=== PATIENT | female | born 1950 ===

== ENCOUNTER 2021-08-21 17:12 | Inpatient (IN) | payer MEDICARE, MEDICAID ==
[2021-08-21] MEDS ORDERED: Albuterol 0.083% 2.5 MG/3 ML Neb Soln NEB ONE (17:20)
[2021-08-21 18:13] LABS: ANION GAP 12.2 mEq/L (7-13); CHLORIDE,CL 96 mmol/L (98-107); SODIUM,NA 137 mmol/L (136-145)
[2021-08-21] MEDS ORDERED: Nystatin Crm 15 GM Tube TOP ONE (18:28)
[2021-08-21] MEDS ORDERED: Nystatin Topical Powder 30 GM Bottle TOP ONE (18:34)
[2021-08-21 18:53] LABS: AMPHETAMINES,URINE NEGATIVE (NEGATIVE); BARBITURATES,URINE NEGATIVE (NEGATIVE); BENZODIAZEPINE,URINE NEGATIVE (NEGATIVE); MDMA (ECSTASY), URINE NEGATIVE (NEGATIVE); METHADONE,URINE NEGATIVE (NEGATIVE); METHAMPHETAMINES,URINE NEGATIVE (NEGATIVE); OPIATES,URINE NEGATIVE (NEGATIVE); OXYCODONE,URINE NEGATIVE (NEGATIVE); PHENCYCLIDINE,URINE NEGATIVE (NEGATIVE); TCA,URINE NEGATIVE (NEGATIVE)
[2021-08-21 18:56] LABS: CORONAVIRUS COVID-19 NAA NEGATIVE (NEGATIVE)
[2021-08-21] MEDS: Fluconazole 100 MG Tab PO ONE (19:05)
[2021-08-21] MEDS ORDERED: Fluconazole 100 MG Tab ONE (19:05)
[2021-08-21] MEDS ORDERED: Levofloxacin/Dextrose 5%-Water 750 MG in Premix Bag 1 BAG IV ONE (20:14)
[2021-08-21] MEDS ORDERED: 50% Dextrose in Water 50 ML Syringe IVPUSH PRN (21:47)
[2021-08-21] MEDS ORDERED: Ondansetron 4 MG/2 ML SDV IVPUSH PRN (21:55)
[2021-08-21] MEDS: Sodium Chloride 0.9% 1,000 ML IV SCH (23:26)
[2021-08-21] MEDS: Heparin Sodium 5,000 Units/ML Vial SUBCUT SCH (23:30)
[2021-08-22] MEDS: Heparin Sodium 5,000 Units/ML Vial SUBCUT SCH ×3 (06:36→21:16)
[2021-08-22 07:16] LABS: ANION GAP 9.2 mEq/L (7-13); CHLORIDE,CL 100 mmol/L (98-107); SODIUM,NA 136 mmol/L (136-145)
[2021-08-22] MEDS: glipiZIDE 5 MG Tab PO SCH ×2 (08:53→17:16)
[2021-08-22] MEDS: Cyanocobalamin (Vitamin B12) 100 MCG Tab PO SCH (08:54)
[2021-08-22] MEDS: Atenolol 50 MG Tab PO SCH (08:54)
[2021-08-22] MEDS: Gabapentin 300 MG Cap PO SCH ×3 (08:55→20:48)
[2021-08-22] MEDS: Levothyroxine 50 MCG Tab PO SCH (08:55)
[2021-08-22] MEDS: Ezetimibe 10 MG Tab PO SCH (08:55)
[2021-08-22] MEDS: Aspirin 81 MG Tab.EC PO SCH (08:55)
[2021-08-22] MEDS: Insulin Lispro 100 Units/ML 3 ML Vial SUBCUT SCH ×4 (08:56→20:50)
[2021-08-22] MEDS: Dorzolamide/Timolol 2%-0.5% Ophth Soln 10 ML Bottle EYEBOTH SCH ×2 (08:56→20:52)
[2021-08-22] MEDS: Multivitamin Tab PO SCH (08:57)
[2021-08-22] MEDS: Sodium Chloride 0.9% 1,000 ML IV SCH (12:30)
[2021-08-22] MEDS ORDERED: Furosemide 20 MG Tab PO ONE (14:32)
[2021-08-22] MEDS: Albuterol/Ipratropium 3.0-0.5 MG/3 ML Neb Soln NEB SCH ×2 (15:10→18:07)
[2021-08-22] MEDS: Nystatin Topical Powder 30 GM Bottle TOP SCH ×2 (15:32→22:19)
[2021-08-22] MEDS: Fluconazole 100 MG Tab PO ONE (17:30)
[2021-08-22] MEDS: Temazepam 15 MG Cap PO PRN (20:48)
[2021-08-22] MEDS: Levofloxacin/Dextrose 5%-Water 750 MG in Premix Bag 1 BAG IV SCH (21:16)
[2021-08-23] MEDS: Albuterol/Ipratropium 3.0-0.5 MG/3 ML Neb Soln NEB PRN ×2 (02:25→22:52)
[2021-08-23] MEDS: Sodium Chloride 0.9% 1,000 ML IV SCH (02:25)
[2021-08-23] MEDS: glipiZIDE 5 MG Tab PO SCH ×2 (05:13→17:16)
[2021-08-23] MEDS: Heparin Sodium 5,000 Units/ML Vial SUBCUT SCH ×3 (05:14→22:33)
[2021-08-23] MEDS: Nystatin Topical Powder 30 GM Bottle TOP SCH ×4 (06:25→22:42)
[2021-08-23 07:11] LABS: CHLORIDE,CL 97 mmol/L (98-107); SODIUM,NA 133 mmol/L (136-145)
[2021-08-23] MEDS: Albuterol/Ipratropium 3.0-0.5 MG/3 ML Neb Soln NEB SCH ×3 (07:30→18:00)
[2021-08-23] MEDS ORDERED: Furosemide 40 MG/4 ML VIAL IVPUSH ONE (07:42)
[2021-08-23 07:56] LABS: ALLEN TEST POSITIVE; BASE EXCESS ARTERIAL -4 mmol/L ((-2)-(+3)); BICARBONATE,ARTERIAL 28.8 mmol/L (22-26); O2 DELIVERY DEVICE NON REBR MASK; O2 SATURATION ARTERIAL 95 % (95-100); PCO2 ARTERIAL 99 mmHg (35-45); PO2 ARTERIAL 87 mmHg (70-100)
[2021-08-23] MEDS: Insulin Lispro 100 Units/ML 3 ML Vial SUBCUT SCH ×4 (09:11→22:40)
[2021-08-23] MEDS: Atenolol 50 MG Tab PO SCH (09:12)
[2021-08-23] MEDS: Multivitamin Tab PO SCH (09:12)
[2021-08-23] MEDS: Levothyroxine 50 MCG Tab PO SCH (09:12)
[2021-08-23] MEDS: Gabapentin 300 MG Cap PO SCH ×3 (09:13→20:14)
[2021-08-23] MEDS: Aspirin 81 MG Tab.EC PO SCH (09:13)
[2021-08-23] MEDS: Dorzolamide/Timolol 2%-0.5% Ophth Soln 10 ML Bottle EYEBOTH SCH ×2 (09:13→20:13)
[2021-08-23] MEDS: Ezetimibe 10 MG Tab PO SCH (09:13)
[2021-08-23] MEDS: Cyanocobalamin (Vitamin B12) 100 MCG Tab PO SCH (09:13)
[2021-08-23 09:38] LABS: ALLEN TEST POSITIVE; BASE EXCESS ARTERIAL 0 mmol/L ((-2)-(+3)); O2 DELIVERY DEVICE BIPAP; O2 SATURATION ARTERIAL 99 % (95-100); PCO2 ARTERIAL 64 mmHg (35-45); PO2 ARTERIAL 103 mmHg (70-100)
[2021-08-23] MEDS ORDERED: Furosemide 20 MG/2 ML VIAL IVPUSH ONE (16:00)
[2021-08-23] MEDS: Acetaminophen 325 MG Tab PO PRN (17:20)
[2021-08-23] MEDS: Levofloxacin/Dextrose 5%-Water 750 MG in Premix Bag 1 BAG IV SCH (22:35)
[2021-08-24] MEDS: Heparin Sodium 5,000 Units/ML Vial SUBCUT SCH ×3 (05:40→22:05)
[2021-08-24] MEDS: Nystatin Topical Powder 30 GM Bottle TOP SCH ×4 (05:42→22:03)
[2021-08-24] MEDS: Albuterol/Ipratropium 3.0-0.5 MG/3 ML Neb Soln NEB SCH ×3 (06:51→18:04)
[2021-08-24 06:54] LABS: ANION GAP 7.3 mEq/L (7-13); CHLORIDE,CL 97 mmol/L (98-107); SODIUM,NA 136 mmol/L (136-145)
[2021-08-24] MEDS: glipiZIDE 5 MG Tab PO SCH ×2 (08:02→17:41)
[2021-08-24] MEDS: Multivitamin Tab PO SCH (09:08)
[2021-08-24] MEDS: Levothyroxine 50 MCG Tab PO SCH (09:08)
[2021-08-24] MEDS: Ezetimibe 10 MG Tab PO SCH (09:09)
[2021-08-24] MEDS: Aspirin 81 MG Tab.EC PO SCH (09:09)
[2021-08-24] MEDS: Cyanocobalamin (Vitamin B12) 100 MCG Tab PO SCH (09:09)
[2021-08-24] MEDS: Furosemide 20 MG Tab PO SCH (09:09)
[2021-08-24] MEDS: Atenolol 50 MG Tab PO SCH (09:10)
[2021-08-24] MEDS: Gabapentin 300 MG Cap PO SCH ×3 (09:10→21:56)
[2021-08-24] MEDS: Sodium Chloride 0.9% 10 ML Syringe FLUSH PRN ×3 (09:11→22:07)
[2021-08-24] MEDS: Dorzolamide/Timolol 2%-0.5% Ophth Soln 10 ML Bottle EYEBOTH SCH ×2 (09:13→21:57)
[2021-08-24] MEDS: Insulin Lispro 100 Units/ML 3 ML Vial SUBCUT SCH ×4 (09:14→22:04)
[2021-08-24] MEDS: Albuterol/Ipratropium 3.0-0.5 MG/3 ML Neb Soln NEB PRN (10:11)
[2021-08-24] MEDS ORDERED: Furosemide 20 MG/2 ML VIAL IVPUSH ONE (10:30)
[2021-08-24] MEDS ORDERED: Loratadine 10 MG Tab PO PRN (20:34)
[2021-08-24] MEDS ORDERED: Albuterol 6.7 GM Inhaler INH PRN (20:34)
[2021-08-24] MEDS ORDERED: Dorzolamide/Timolol 2%-0.5% Ophth Soln 10 ML Bottle EYEBOTH SCH (21:00)
[2021-08-24] MEDS: Rosuvastatin 10 MG Tab PO SCH (21:56)
[2021-08-24] MEDS: Levofloxacin/Dextrose 5%-Water 750 MG in Premix Bag 1 BAG IV SCH (22:08)
[2021-08-25] MEDS: Nystatin Topical Powder 30 GM Bottle TOP SCH ×3 (05:56→23:08)
[2021-08-25] MEDS: Heparin Sodium 5,000 Units/ML Vial SUBCUT SCH ×3 (05:56→23:07)
[2021-08-25 06:49] LABS: ANION GAP 5.7 mEq/L (7-13); CHLORIDE,CL 96 mmol/L (98-107); SODIUM,NA 137 mmol/L (136-145)
[2021-08-25] MEDS: Gabapentin 300 MG Cap PO SCH ×3 (08:31→23:04)
[2021-08-25] MEDS: Vitamin B6-pyridOXINE 100 MG Tab PO SCH (08:31)
[2021-08-25] MEDS: Aspirin 81 MG Tab.EC PO SCH (08:31)
[2021-08-25] MEDS: Levothyroxine 50 MCG Tab PO SCH (08:32)
[2021-08-25] MEDS: metFORMIN 500 MG Tab PO SCH ×2 (08:32→17:58)
[2021-08-25] MEDS: Lisinopril 10 MG Tab PO SCH (08:33)
[2021-08-25] MEDS: glipiZIDE 5 MG Tab PO SCH ×2 (08:33→17:57)
[2021-08-25] MEDS: Multivitamin Tab PO SCH (08:34)
[2021-08-25] MEDS: Cyanocobalamin (Vitamin B12) 100 MCG Tab PO SCH (08:34)
[2021-08-25] MEDS: Furosemide 20 MG Tab PO SCH (08:34)
[2021-08-25] MEDS: Ezetimibe 10 MG Tab PO SCH (08:35)
[2021-08-25] MEDS: Atenolol 50 MG Tab PO SCH (08:35)
[2021-08-25] MEDS: Albuterol/Ipratropium 3.0-0.5 MG/3 ML Neb Soln NEB SCH ×3 (08:43→19:21)
[2021-08-25] MEDS ORDERED: Non-Formulary Medication 1 Each (Potassium Gluconate [Potassium] 99 MG Tablet) PO SCH (09:00)
[2021-08-25] MEDS ORDERED: UBIDECARENONE 100 MG PO SCH (09:00)
[2021-08-25] MEDS ORDERED: Atenolol 50 MG Tab PO SCH (09:00)
[2021-08-25] MEDS ORDERED: ZINC SULFATE 220 MG PO SCH (09:00)
[2021-08-25] MEDS ORDERED: Magnesium Sulfate/D5W 1 GM/100 ML BAG IV ONE (09:10)
[2021-08-25] MEDS: Insulin Lispro 100 Units/ML 3 ML Vial SUBCUT SCH ×4 (10:12→23:15)
[2021-08-25] MEDS: Sodium Chloride 0.9% 10 ML Syringe FLUSH PRN ×2 (10:22→23:17)
[2021-08-25] MEDS: Dorzolamide/Timolol 2%-0.5% Ophth Soln 10 ML Bottle EYEBOTH SCH ×2 (10:26→23:02)
[2021-08-25] MEDS: Albuterol/Ipratropium 3.0-0.5 MG/3 ML Neb Soln NEB PRN (10:49)
[2021-08-25] MEDS: Rosuvastatin 10 MG Tab PO SCH (23:04)
[2021-08-25] MEDS: Levofloxacin/Dextrose 5%-Water 750 MG in Premix Bag 1 BAG IV SCH (23:17)
[2021-08-26] MEDS: Heparin Sodium 5,000 Units/ML Vial SUBCUT SCH ×3 (06:11→21:32)
[2021-08-26] MEDS: Nystatin Topical Powder 30 GM Bottle TOP SCH ×4 (06:11→21:54)
[2021-08-26 06:38] LABS: ANION GAP 8.1 mEq/L (7-13); CHLORIDE,CL 98 mmol/L (98-107); SODIUM,NA 138 mmol/L (136-145)
[2021-08-26] MEDS: Albuterol/Ipratropium 3.0-0.5 MG/3 ML Neb Soln NEB SCH ×3 (07:25→17:45)
[2021-08-26] MEDS: glipiZIDE 5 MG Tab PO SCH ×2 (07:41→17:39)
[2021-08-26] MEDS: Sodium Chloride 0.9% 10 ML Syringe FLUSH PRN ×2 (08:43→21:44)
[2021-08-26] MEDS: Aspirin 81 MG Tab.EC PO SCH (08:44)
[2021-08-26] MEDS: Multivitamin Tab PO SCH (08:44)
[2021-08-26] MEDS: Vitamin B6-pyridOXINE 100 MG Tab PO SCH (08:44)
[2021-08-26] MEDS: Ezetimibe 10 MG Tab PO SCH (08:44)
[2021-08-26] MEDS: Levothyroxine 50 MCG Tab PO SCH (08:44)
[2021-08-26] MEDS: Lisinopril 10 MG Tab PO SCH (08:45)
[2021-08-26] MEDS: Cyanocobalamin (Vitamin B12) 100 MCG Tab PO SCH (08:45)
[2021-08-26] MEDS: Gabapentin 300 MG Cap PO SCH ×3 (08:45→21:27)
[2021-08-26] MEDS: metFORMIN 500 MG Tab PO SCH ×2 (08:46→17:38)
[2021-08-26] MEDS: Atenolol 50 MG Tab PO SCH (08:46)
[2021-08-26] MEDS: Furosemide 40 MG Tab PO SCH (08:47)
[2021-08-26] MEDS: Insulin Lispro 100 Units/ML 3 ML Vial SUBCUT SCH ×4 (08:47→21:29)
[2021-08-26] MEDS: Dorzolamide/Timolol 2%-0.5% Ophth Soln 10 ML Bottle EYEBOTH SCH ×2 (08:49→21:29)
[2021-08-26] MEDS ORDERED: Magnesium Sulfate/Water 2 GM in Premix Bag 1 BAG IV ONE (09:00)
[2021-08-26] MEDS: Albuterol/Ipratropium 3.0-0.5 MG/3 ML Neb Soln NEB PRN (15:35)
[2021-08-26] MEDS: Rosuvastatin 10 MG Tab PO SCH (21:27)
[2021-08-26] MEDS: Levofloxacin/Dextrose 5%-Water 750 MG in Premix Bag 1 BAG IV SCH (21:46)
[2021-08-27] MEDS: Temazepam 15 MG Cap PO PRN (01:15)
[2021-08-27] MEDS: Heparin Sodium 5,000 Units/ML Vial SUBCUT SCH ×3 (06:00→21:01)
[2021-08-27] MEDS: Nystatin Topical Powder 30 GM Bottle TOP SCH ×3 (06:04→23:34)
[2021-08-27] MEDS: Albuterol/Ipratropium 3.0-0.5 MG/3 ML Neb Soln NEB SCH ×3 (07:10→19:56)
[2021-08-27 07:38] LABS: ANION GAP 6.9 mEq/L (7-13); CHLORIDE,CL 98 mmol/L (98-107); SODIUM,NA 139 mmol/L (136-145)
[2021-08-27] MEDS: metFORMIN 500 MG Tab PO SCH ×2 (08:51→17:32)
[2021-08-27] MEDS: Vitamin B6-pyridOXINE 100 MG Tab PO SCH (08:52)
[2021-08-27] MEDS: Aspirin 81 MG Tab.EC PO SCH (08:52)
[2021-08-27] MEDS: glipiZIDE 5 MG Tab PO SCH ×2 (08:53→17:32)
[2021-08-27] MEDS: Insulin Lispro 100 Units/ML 3 ML Vial SUBCUT SCH ×4 (08:53→21:08)
[2021-08-27] MEDS: Ezetimibe 10 MG Tab PO SCH (08:54)
[2021-08-27] MEDS: Lisinopril 10 MG Tab PO SCH (08:54)
[2021-08-27] MEDS: Cyanocobalamin (Vitamin B12) 100 MCG Tab PO SCH (08:54)
[2021-08-27] MEDS: Multivitamin Tab PO SCH (08:55)
[2021-08-27] MEDS: Dorzolamide/Timolol 2%-0.5% Ophth Soln 10 ML Bottle EYEBOTH SCH ×2 (08:55→21:11)
[2021-08-27] MEDS: Furosemide 40 MG Tab PO SCH (08:55)
[2021-08-27] MEDS: Gabapentin 300 MG Cap PO SCH ×3 (08:56→21:01)
[2021-08-27] MEDS: Levothyroxine 50 MCG Tab PO SCH (08:56)
[2021-08-27] MEDS: Atenolol 50 MG Tab PO SCH (08:56)
[2021-08-27] MEDS ORDERED: Melatonin 3 MG Tab PO PRN (09:06)
[2021-08-27] MEDS: Sodium Chloride 0.9% 10 ML Syringe FLUSH PRN (09:08)
[2021-08-27] MEDS: Acetaminophen 325 MG Tab PO PRN (10:25)
[2021-08-27] MEDS: BETHANECHOL CHLORIDE 10 MG PO SCH ×2 (13:54→13:55)
[2021-08-27] MEDS: LINAGLIPTIN 5 MG PO SCH ×2 (13:55→13:56)
[2021-08-27] MEDS: Rosuvastatin 10 MG Tab PO SCH (21:01)
[2021-08-27] MEDS: Levofloxacin/Dextrose 5%-Water 750 MG in Premix Bag 1 BAG IV SCH (22:07)
[2021-08-28] MEDS: Heparin Sodium 5,000 Units/ML Vial SUBCUT SCH ×3 (05:22→22:11)
[2021-08-28] MEDS: Nystatin Topical Powder 30 GM Bottle TOP SCH ×4 (05:29→22:23)
[2021-08-28] MEDS: Albuterol/Ipratropium 3.0-0.5 MG/3 ML Neb Soln NEB SCH ×3 (07:06→17:38)
[2021-08-28 07:25] LABS: ANION GAP 5.4 mEq/L (7-13); CHLORIDE,CL 98 mmol/L (98-107); SODIUM,NA 139 mmol/L (136-145)
[2021-08-28] MEDS ORDERED: Magnesium Sulfate/Water 2 GM in Premix Bag 1 BAG IV ONE (08:29)
[2021-08-28] MEDS: Cyanocobalamin (Vitamin B12) 100 MCG Tab PO SCH (08:48)
[2021-08-28] MEDS: Lisinopril 10 MG Tab PO SCH (08:49)
[2021-08-28] MEDS: Ezetimibe 10 MG Tab PO SCH (08:49)
[2021-08-28] MEDS: Furosemide 40 MG Tab PO SCH (08:50)
[2021-08-28] MEDS: metFORMIN 500 MG Tab PO SCH ×2 (08:50→17:31)
[2021-08-28] MEDS: Levothyroxine 50 MCG Tab PO SCH (08:51)
[2021-08-28] MEDS: Vitamin B6-pyridOXINE 100 MG Tab PO SCH (08:51)
[2021-08-28] MEDS: glipiZIDE 5 MG Tab PO SCH ×2 (08:51→17:31)
[2021-08-28] MEDS: Gabapentin 300 MG Cap PO SCH ×3 (08:52→22:03)
[2021-08-28] MEDS: Atenolol 50 MG Tab PO SCH (08:52)
[2021-08-28] MEDS: Multivitamin Tab PO SCH (08:52)
[2021-08-28] MEDS: Aspirin 81 MG Tab.EC PO SCH (08:52)
[2021-08-28] MEDS: Sodium Chloride 0.9% 10 ML Syringe FLUSH PRN (08:53)
[2021-08-28] MEDS: Insulin Lispro 100 Units/ML 3 ML Vial SUBCUT SCH ×4 (10:16→22:04)
[2021-08-28] MEDS: Dorzolamide/Timolol 2%-0.5% Ophth Soln 10 ML Bottle EYEBOTH SCH ×2 (12:15→22:06)
[2021-08-28] MEDS: Rosuvastatin 10 MG Tab PO SCH (22:04)
[2021-08-28] MEDS: Levofloxacin/Dextrose 5%-Water 750 MG in Premix Bag 1 BAG IV SCH (22:12)
[2021-08-29] MEDS: Heparin Sodium 5,000 Units/ML Vial SUBCUT SCH ×3 (05:23→21:10)
[2021-08-29] MEDS: Nystatin Topical Powder 30 GM Bottle TOP SCH ×5 (05:24→23:14)
[2021-08-29] MEDS: Albuterol/Ipratropium 3.0-0.5 MG/3 ML Neb Soln NEB SCH ×3 (07:35→17:58)
[2021-08-29] MEDS: Insulin Lispro 100 Units/ML 3 ML Vial SUBCUT SCH ×4 (08:16→21:11)
[2021-08-29] MEDS: Ezetimibe 10 MG Tab PO SCH (08:30)
[2021-08-29] MEDS: metFORMIN 500 MG Tab PO SCH ×2 (08:30→17:52)
[2021-08-29] MEDS: Cyanocobalamin (Vitamin B12) 100 MCG Tab PO SCH (08:31)
[2021-08-29] MEDS: glipiZIDE 5 MG Tab PO SCH ×2 (08:31→17:52)
[2021-08-29] MEDS: Multivitamin Tab PO SCH (08:32)
[2021-08-29] MEDS: Vitamin B6-pyridOXINE 100 MG Tab PO SCH (08:32)
[2021-08-29] MEDS: Gabapentin 300 MG Cap PO SCH ×3 (08:32→20:08)
[2021-08-29] MEDS: Lisinopril 10 MG Tab PO SCH (08:33)
[2021-08-29] MEDS: Levothyroxine 50 MCG Tab PO SCH (08:33)
[2021-08-29] MEDS: Atenolol 50 MG Tab PO SCH (08:33)
[2021-08-29] MEDS: Aspirin 81 MG Tab.EC PO SCH (08:34)
[2021-08-29] MEDS: Acetaminophen 325 MG Tab PO PRN (08:34)
[2021-08-29] MEDS: Furosemide 40 MG Tab PO SCH (08:34)
[2021-08-29] MEDS: Dorzolamide/Timolol 2%-0.5% Ophth Soln 10 ML Bottle EYEBOTH SCH ×2 (08:35→20:10)
[2021-08-29] MEDS ORDERED: Magnesium Sulfate/Water 2 GM in Premix Bag 1 BAG IV ONE (09:03)
[2021-08-29] MEDS: Sodium Chloride 0.9% 10 ML Syringe FLUSH PRN (10:46)
[2021-08-29] MEDS ORDERED: Aluminum Hydroxide/Magnesium Hydroxide/Simethicone Susp 30 ML Cup PO PRN (17:40)
[2021-08-29] MEDS: Rosuvastatin 10 MG Tab PO SCH (20:08)
[2021-08-29] MEDS: Levofloxacin/Dextrose 5%-Water 750 MG in Premix Bag 1 BAG IV SCH (21:12)
[2021-08-30] MEDS: Heparin Sodium 5,000 Units/ML Vial SUBCUT SCH ×2 (05:31→15:05)
[2021-08-30] MEDS: Nystatin Topical Powder 30 GM Bottle TOP SCH ×3 (05:35→15:06)
[2021-08-30 06:52] LABS: ANION GAP 12.2 mEq/L (7-13); CHLORIDE,CL 96 mmol/L (98-107); SODIUM,NA 137 mmol/L (136-145)
[2021-08-30] MEDS: Albuterol/Ipratropium 3.0-0.5 MG/3 ML Neb Soln NEB SCH ×2 (08:08→13:27)
[2021-08-30] MEDS: Vitamin B6-pyridOXINE 100 MG Tab PO SCH (10:31)
[2021-08-30] MEDS: Lisinopril 10 MG Tab PO SCH (10:31)
[2021-08-30] MEDS: Ezetimibe 10 MG Tab PO SCH (10:32)
[2021-08-30] MEDS: Gabapentin 300 MG Cap PO SCH ×2 (10:33→15:06)
[2021-08-30] MEDS: Multivitamin Tab PO SCH (10:33)
[2021-08-30] MEDS: Furosemide 40 MG Tab PO SCH (10:33)
[2021-08-30] MEDS: Cyanocobalamin (Vitamin B12) 100 MCG Tab PO SCH (10:33)
[2021-08-30] MEDS: Atenolol 50 MG Tab PO SCH (10:34)
[2021-08-30] MEDS: Aspirin 81 MG Tab.EC PO SCH (10:34)
[2021-08-30] MEDS: Levothyroxine 50 MCG Tab PO SCH (10:35)
[2021-08-30] MEDS: glipiZIDE 5 MG Tab PO SCH (10:41)
[2021-08-30] MEDS: metFORMIN 500 MG Tab PO SCH (10:41)
[2021-08-30] MEDS: Insulin Lispro 100 Units/ML 3 ML Vial SUBCUT SCH ×2 (10:43→13:18)
[2021-08-30] MEDS: Dorzolamide/Timolol 2%-0.5% Ophth Soln 10 ML Bottle EYEBOTH SCH (10:44)
== END 2021-08-30 16:06 | disposition swing bed (61) | DRG 193 ==
LOC: DL.ED 17:12 → DL.MS 20:30
PROVIDERS: ADMIT Internal Medicine; ATTEND Internal Medicine
DX: J15.9 Unspecified bacterial pneumonia (principal); J96.01 Acute respiratory failure with hypoxia; D72.828 Other elevated white blood cell count; J96.02 Acute respiratory failure with hypercapnia; J90 Pleural effusion, not elsewhere classified; E11.9 Type 2 diabetes mellitus without complications; N30.00 Acute cystitis without hematuria; H54.7 Unspecified visual loss; I10 Essential (primary) hypertension; Z20.822 Contact with and (suspected) exposure to COVID-19; E11.65 Type 2 diabetes mellitus with hyperglycemia; W06.XXXA Fall from bed, initial encounter; E78.5 Hyperlipidemia, unspecified; E03.9 Hypothyroidism, unspecified; E66.01 Morbid (severe) obesity due to excess calories; T79.6XXA Traumatic ischemia of muscle, initial encounter; I25.10 Atherosclerotic heart disease of native coronary artery without angina pectoris; B36.9 Superficial mycosis, unspecified; M81.0 Age-related osteoporosis without current pathological fracture; E53.8 Deficiency of other specified B group vitamins; E11.42 Type 2 diabetes mellitus with diabetic polyneuropathy; R33.9 Retention of urine, unspecified; H40.9 Unspecified glaucoma; I89.0 Lymphedema, not elsewhere classified; E83.42 Hypomagnesemia; L30.9 Dermatitis, unspecified; Z68.36 Body mass index [BMI] 36.0-36.9, adult; Z88.1 Allergy status to other antibiotic agents; Z79.82 Long term (current) use of aspirin; Z79.899 Other long term (current) drug therapy; Z79.890 Hormone replacement therapy; Z79.84 Long term (current) use of oral hypoglycemic drugs; T68.XXXA Hypothermia, initial encounter
CPT/HCPCS: 0240U; 36415; 36600; 51702; 71045; 80048; 80053; 80305; 81001; 82550; 82803; 82947; 83605; 83735; 83880; 84443; 85025; 85379; 85651; 86140; 87040; 87086; 93005; 94060; 94640; 94660; 97110; 97116; 97161; 97165; 97530; 97535; 99221; 99232; 99233; 99239; 99291; A9270-GY; J1644; J1815-GY; J1940; J1956; J3475; J7030; J7613-GY; J7620-GY

== ENCOUNTER 2021-08-30 11:05 | Inpatient (IN) | payer MEDICARE, MEDICAID ==
[2021-08-30] MEDS ORDERED: 50% Dextrose in Water 50 ML Syringe IVPUSH PRN (15:56)
[2021-08-30] MEDS ORDERED: Aluminum Hydroxide/Magnesium Hydroxide/Simethicone Susp 30 ML Cup PO PRN (15:56)
[2021-08-30] MEDS ORDERED: Albuterol 6.7 GM Inhaler INH PRN (15:56)
[2021-08-30] MEDS ORDERED: Ondansetron 4 MG/2 ML SDV IVPUSH PRN (15:56)
[2021-08-30] MEDS ORDERED: Loratadine 10 MG Tab PO PRN (15:56)
[2021-08-30] MEDS ORDERED: Melatonin 3 MG Tab PO PRN (15:56)
[2021-08-30] MEDS ORDERED: Albuterol/Ipratropium 3.0-0.5 MG/3 ML Neb Soln NEB PRN (15:56)
[2021-08-30] MEDS ORDERED: Glucagon,Human Recombinant 1 MG Vial IM PRN (15:56)
[2021-08-30] MEDS: glipiZIDE 5 MG Tab PO SCH (17:41)
[2021-08-30] MEDS: metFORMIN 500 MG Tab PO SCH (17:42)
[2021-08-30] MEDS: Insulin Lispro 100 Units/ML 3 ML Vial SUBCUT SCH ×2 (17:43→21:12)
[2021-08-30] MEDS: Albuterol/Ipratropium 3.0-0.5 MG/3 ML Neb Soln NEB SCH (18:52)
[2021-08-30] MEDS ORDERED: Gabapentin 300 MG Cap PO SCH (21:00)
[2021-08-30] MEDS: Dorzolamide/Timolol 2%-0.5% Ophth Soln 10 ML Bottle EYEBOTH SCH (21:11)
[2021-08-30] MEDS: Rosuvastatin 10 MG Tab PO SCH (21:12)
[2021-08-30] MEDS: Nystatin Topical Powder 30 GM Bottle TOP SCH ×2 (21:15→22:45)
[2021-08-30] MEDS: Heparin Sodium 5,000 Units/ML Vial SUBCUT SCH (21:15)
[2021-08-31] MEDS: Acetaminophen 325 MG Tab PO PRN (02:56)
[2021-08-31] MEDS: Heparin Sodium 5,000 Units/ML Vial SUBCUT SCH ×3 (05:26→21:51)
[2021-08-31] MEDS: Levothyroxine 50 MCG Tab PO SCH (05:26)
[2021-08-31] MEDS: Nystatin Topical Powder 30 GM Bottle TOP SCH ×4 (05:29→21:53)
[2021-08-31] MEDS: metFORMIN 500 MG Tab PO SCH ×2 (08:07→17:14)
[2021-08-31] MEDS: glipiZIDE 5 MG Tab PO SCH ×2 (08:08→17:15)
[2021-08-31] MEDS: Albuterol/Ipratropium 3.0-0.5 MG/3 ML Neb Soln NEB SCH ×3 (08:56→19:22)
[2021-08-31] MEDS: Insulin Lispro 100 Units/ML 3 ML Vial SUBCUT SCH ×4 (09:47→21:52)
[2021-08-31] MEDS: Dorzolamide/Timolol 2%-0.5% Ophth Soln 10 ML Bottle EYEBOTH SCH ×2 (09:48→21:50)
[2021-08-31] MEDS: Furosemide 40 MG Tab PO SCH (09:51)
[2021-08-31] MEDS: Ezetimibe 10 MG Tab PO SCH (09:51)
[2021-08-31] MEDS: Vitamin B6-pyridOXINE 100 MG Tab PO SCH (09:51)
[2021-08-31] MEDS: Lisinopril 10 MG Tab PO SCH (09:52)
[2021-08-31] MEDS: Cyanocobalamin (Vitamin B12) 100 MCG Tab PO SCH (09:52)
[2021-08-31] MEDS: Aspirin 81 MG Tab.EC PO SCH (09:53)
[2021-08-31] MEDS: Multivitamin Tab PO SCH (09:53)
[2021-08-31] MEDS: Atenolol 50 MG Tab PO SCH (09:54)
[2021-08-31] MEDS ORDERED: Ondansetron 4 MG Tab.DIS PO PRN (19:20)
[2021-08-31] MEDS: Calcium Carbonate 500 MG Tab.Chew PO PRN (19:45)
[2021-08-31] MEDS: Rosuvastatin 10 MG Tab PO SCH (21:48)
[2021-08-31] MEDS: Gabapentin 300 MG Cap PO SCH (21:48)
[2021-09-01] MEDS: Heparin Sodium 5,000 Units/ML Vial SUBCUT SCH ×3 (06:29→22:02)
[2021-09-01] MEDS: Levothyroxine 50 MCG Tab PO SCH (06:29)
[2021-09-01] MEDS: Nystatin Topical Powder 30 GM Bottle TOP SCH ×3 (06:29→22:01)
[2021-09-01] MEDS: glipiZIDE 5 MG Tab PO SCH ×2 (08:26→17:43)
[2021-09-01] MEDS: metFORMIN 500 MG Tab PO SCH ×2 (08:26→17:44)
[2021-09-01] MEDS: Vitamin B6-pyridOXINE 100 MG Tab PO SCH (08:27)
[2021-09-01] MEDS: Cyanocobalamin (Vitamin B12) 100 MCG Tab PO SCH (08:27)
[2021-09-01] MEDS: Ezetimibe 10 MG Tab PO SCH (08:28)
[2021-09-01] MEDS: Lisinopril 10 MG Tab PO SCH (08:28)
[2021-09-01] MEDS: Multivitamin Tab PO SCH (08:28)
[2021-09-01] MEDS: Atenolol 50 MG Tab PO SCH (08:29)
[2021-09-01] MEDS: Aspirin 81 MG Tab.EC PO SCH (08:29)
[2021-09-01] MEDS: Furosemide 40 MG Tab PO SCH (08:29)
[2021-09-01] MEDS: Dorzolamide/Timolol 2%-0.5% Ophth Soln 10 ML Bottle EYEBOTH SCH ×2 (08:30→22:01)
[2021-09-01] MEDS: Insulin Lispro 100 Units/ML 3 ML Vial SUBCUT SCH ×4 (08:32→22:04)
[2021-09-01] MEDS: Albuterol/Ipratropium 3.0-0.5 MG/3 ML Neb Soln NEB SCH ×2 (17:19→18:57)
[2021-09-01] MEDS: Rosuvastatin 10 MG Tab PO SCH (22:00)
[2021-09-01] MEDS: Gabapentin 300 MG Cap PO SCH (22:01)
[2021-09-02] MEDS: Levothyroxine 50 MCG Tab PO SCH (06:10)
[2021-09-02] MEDS: Heparin Sodium 5,000 Units/ML Vial SUBCUT SCH ×3 (06:11→22:01)
[2021-09-02] MEDS: Nystatin Topical Powder 30 GM Bottle TOP SCH ×3 (06:13→22:00)
[2021-09-02] MEDS: Albuterol/Ipratropium 3.0-0.5 MG/3 ML Neb Soln NEB SCH ×3 (08:03→18:05)
[2021-09-02] MEDS: glipiZIDE 5 MG Tab PO SCH ×2 (08:12→17:40)
[2021-09-02] MEDS: Furosemide 40 MG Tab PO SCH (08:13)
[2021-09-02] MEDS: Atenolol 50 MG Tab PO SCH (08:13)
[2021-09-02] MEDS: metFORMIN 500 MG Tab PO SCH ×2 (08:13→17:39)
[2021-09-02] MEDS: Ezetimibe 10 MG Tab PO SCH (08:14)
[2021-09-02] MEDS: Lisinopril 10 MG Tab PO SCH (08:14)
[2021-09-02] MEDS: Multivitamin Tab PO SCH (08:14)
[2021-09-02] MEDS: Aspirin 81 MG Tab.EC PO SCH (08:14)
[2021-09-02] MEDS: Cyanocobalamin (Vitamin B12) 100 MCG Tab PO SCH (08:15)
[2021-09-02] MEDS: Vitamin B6-pyridOXINE 100 MG Tab PO SCH (08:15)
[2021-09-02] MEDS: Insulin Lispro 100 Units/ML 3 ML Vial SUBCUT SCH ×5 (08:16→22:07)
[2021-09-02] MEDS: Dorzolamide/Timolol 2%-0.5% Ophth Soln 10 ML Bottle EYEBOTH SCH ×2 (08:16→22:11)
[2021-09-02] MEDS: Rosuvastatin 10 MG Tab PO SCH (22:01)
[2021-09-02] MEDS: Gabapentin 300 MG Cap PO SCH (22:01)
[2021-09-03] MEDS: Nystatin Topical Powder 30 GM Bottle TOP SCH ×3 (06:49→22:13)
[2021-09-03] MEDS: Heparin Sodium 5,000 Units/ML Vial SUBCUT SCH ×3 (06:50→22:16)
[2021-09-03] MEDS: Levothyroxine 50 MCG Tab PO SCH (06:50)
[2021-09-03] MEDS: Albuterol/Ipratropium 3.0-0.5 MG/3 ML Neb Soln NEB SCH ×3 (07:45→18:16)
[2021-09-03] MEDS: metFORMIN 500 MG Tab PO SCH ×2 (08:19→17:55)
[2021-09-03] MEDS: glipiZIDE 5 MG Tab PO SCH ×2 (08:20→17:56)
[2021-09-03] MEDS: Furosemide 40 MG Tab PO SCH (08:20)
[2021-09-03] MEDS: Ezetimibe 10 MG Tab PO SCH (08:21)
[2021-09-03] MEDS: Vitamin B6-pyridOXINE 100 MG Tab PO SCH (08:21)
[2021-09-03] MEDS: Multivitamin Tab PO SCH (08:21)
[2021-09-03] MEDS: Aspirin 81 MG Tab.EC PO SCH (08:22)
[2021-09-03] MEDS: Cyanocobalamin (Vitamin B12) 100 MCG Tab PO SCH (08:22)
[2021-09-03] MEDS: Insulin Lispro 100 Units/ML 3 ML Vial SUBCUT SCH ×4 (08:23→22:14)
[2021-09-03] MEDS: Atenolol 50 MG Tab PO SCH (08:26)
[2021-09-03] MEDS: Lisinopril 10 MG Tab PO SCH (08:26)
[2021-09-03] MEDS: Dorzolamide/Timolol 2%-0.5% Ophth Soln 10 ML Bottle EYEBOTH SCH ×2 (08:27→22:12)
[2021-09-03] MEDS: Rosuvastatin 10 MG Tab PO SCH (22:13)
[2021-09-03] MEDS: Gabapentin 300 MG Cap PO SCH (22:13)
[2021-09-04] MEDS: Levothyroxine 50 MCG Tab PO SCH (05:47)
[2021-09-04] MEDS: Heparin Sodium 5,000 Units/ML Vial SUBCUT SCH ×3 (05:48→21:57)
[2021-09-04] MEDS: Nystatin Topical Powder 30 GM Bottle TOP SCH ×3 (05:49→22:10)
[2021-09-04] MEDS: metFORMIN 500 MG Tab PO SCH ×2 (08:24→17:24)
[2021-09-04] MEDS: glipiZIDE 5 MG Tab PO SCH ×2 (08:25→17:24)
[2021-09-04] MEDS: Ezetimibe 10 MG Tab PO SCH (08:26)
[2021-09-04] MEDS: Aspirin 81 MG Tab.EC PO SCH (08:26)
[2021-09-04] MEDS: Cyanocobalamin (Vitamin B12) 100 MCG Tab PO SCH (08:26)
[2021-09-04] MEDS: Multivitamin Tab PO SCH (08:26)
[2021-09-04] MEDS: Furosemide 40 MG Tab PO SCH (08:26)
[2021-09-04] MEDS: Vitamin B6-pyridOXINE 100 MG Tab PO SCH (08:27)
[2021-09-04] MEDS: Acetaminophen 325 MG Tab PO PRN (08:27)
[2021-09-04] MEDS: Insulin Lispro 100 Units/ML 3 ML Vial SUBCUT SCH ×4 (08:30→22:03)
[2021-09-04] MEDS: Dorzolamide/Timolol 2%-0.5% Ophth Soln 10 ML Bottle EYEBOTH SCH ×2 (08:31→22:09)
[2021-09-04] MEDS: Albuterol/Ipratropium 3.0-0.5 MG/3 ML Neb Soln NEB SCH ×3 (09:09→19:02)
[2021-09-04] MEDS: Atenolol 50 MG Tab PO SCH (10:41)
[2021-09-04] MEDS: Lisinopril 10 MG Tab PO SCH (10:41)
[2021-09-04] MEDS: Rosuvastatin 10 MG Tab PO SCH (21:57)
[2021-09-04] MEDS: Gabapentin 300 MG Cap PO SCH (21:57)
[2021-09-05] MEDS: Levothyroxine 50 MCG Tab PO SCH (06:19)
[2021-09-05] MEDS: Heparin Sodium 5,000 Units/ML Vial SUBCUT SCH (06:19)
[2021-09-05] MEDS: Nystatin Topical Powder 30 GM Bottle TOP SCH ×3 (06:21→21:55)
[2021-09-05] MEDS: Lisinopril 10 MG Tab PO SCH (09:08)
[2021-09-05] MEDS: Aspirin 81 MG Tab.EC PO SCH (09:08)
[2021-09-05] MEDS: Atenolol 50 MG Tab PO SCH (09:09)
[2021-09-05] MEDS: Multivitamin Tab PO SCH (09:09)
[2021-09-05] MEDS: Cyanocobalamin (Vitamin B12) 100 MCG Tab PO SCH (09:10)
[2021-09-05] MEDS: Ezetimibe 10 MG Tab PO SCH (09:10)
[2021-09-05] MEDS: metFORMIN 500 MG Tab PO SCH ×2 (09:10→17:59)
[2021-09-05] MEDS: Furosemide 40 MG Tab PO SCH (09:10)
[2021-09-05] MEDS: glipiZIDE 5 MG Tab PO SCH ×2 (09:10→17:56)
[2021-09-05] MEDS: Vitamin B6-pyridOXINE 100 MG Tab PO SCH (09:11)
[2021-09-05] MEDS: Albuterol/Ipratropium 3.0-0.5 MG/3 ML Neb Soln NEB SCH ×3 (09:12→18:12)
[2021-09-05] MEDS: Insulin Lispro 100 Units/ML 3 ML Vial SUBCUT SCH ×4 (09:12→21:37)
[2021-09-05] MEDS: Dorzolamide/Timolol 2%-0.5% Ophth Soln 10 ML Bottle EYEBOTH SCH ×2 (09:13→21:36)
[2021-09-05] MEDS: Enoxaparin 40 MG/0.4 ML Syringe SUBCUT SCH (11:42)
[2021-09-05] MEDS: Rosuvastatin 10 MG Tab PO SCH (21:37)
[2021-09-05] MEDS: Gabapentin 300 MG Cap PO SCH (21:37)
[2021-09-05] MEDS: Calcium Carbonate 500 MG Tab.Chew PO PRN (21:42)
[2021-09-06] MEDS: Levothyroxine 50 MCG Tab PO SCH (05:55)
[2021-09-06] MEDS: Nystatin Topical Powder 30 GM Bottle TOP SCH ×3 (06:54→20:51)
[2021-09-06 07:09] LABS: ANION GAP 11.2 mEq/L (7-13); CHLORIDE,CL 97 mmol/L (98-107); SODIUM,NA 135 mmol/L (136-145)
[2021-09-06] MEDS: Albuterol/Ipratropium 3.0-0.5 MG/3 ML Neb Soln NEB SCH ×3 (08:03→18:37)
[2021-09-06] MEDS: Enoxaparin 40 MG/0.4 ML Syringe SUBCUT SCH (08:39)
[2021-09-06] MEDS: Dorzolamide/Timolol 2%-0.5% Ophth Soln 10 ML Bottle EYEBOTH SCH ×2 (08:42→20:50)
[2021-09-06] MEDS: metFORMIN 500 MG Tab PO SCH ×2 (08:43→17:46)
[2021-09-06] MEDS: Multivitamin Tab PO SCH (08:43)
[2021-09-06] MEDS: glipiZIDE 5 MG Tab PO SCH ×2 (08:44→17:46)
[2021-09-06] MEDS: Lisinopril 10 MG Tab PO SCH (08:45)
[2021-09-06] MEDS: Cyanocobalamin (Vitamin B12) 100 MCG Tab PO SCH (08:45)
[2021-09-06] MEDS: Ezetimibe 10 MG Tab PO SCH (08:45)
[2021-09-06] MEDS: Atenolol 50 MG Tab PO SCH (08:46)
[2021-09-06] MEDS: Aspirin 81 MG Tab.EC PO SCH (08:46)
[2021-09-06] MEDS: Furosemide 40 MG Tab PO SCH (08:47)
[2021-09-06] MEDS: Vitamin B6-pyridOXINE 100 MG Tab PO SCH (08:47)
[2021-09-06] MEDS: Rosuvastatin 10 MG Tab PO SCH (20:50)
[2021-09-06] MEDS: Gabapentin 300 MG Cap PO SCH (20:50)
[2021-09-07] MEDS: Levothyroxine 50 MCG Tab PO SCH (06:24)
[2021-09-07] MEDS: Albuterol/Ipratropium 3.0-0.5 MG/3 ML Neb Soln NEB SCH ×3 (07:57→18:22)
[2021-09-07] MEDS: metFORMIN 500 MG Tab PO SCH ×2 (08:18→17:08)
[2021-09-07] MEDS: Multivitamin Tab PO SCH (08:25)
[2021-09-07] MEDS: glipiZIDE 5 MG Tab PO SCH ×2 (08:25→17:07)
[2021-09-07] MEDS: Aspirin 81 MG Tab.EC PO SCH (08:26)
[2021-09-07] MEDS: Vitamin B6-pyridOXINE 100 MG Tab PO SCH (08:26)
[2021-09-07] MEDS: Cyanocobalamin (Vitamin B12) 100 MCG Tab PO SCH (08:26)
[2021-09-07] MEDS: Furosemide 40 MG Tab PO SCH (08:27)
[2021-09-07] MEDS: Lisinopril 10 MG Tab PO SCH (08:27)
[2021-09-07] MEDS: Ezetimibe 10 MG Tab PO SCH (08:27)
[2021-09-07] MEDS: Atenolol 50 MG Tab PO SCH (08:28)
[2021-09-07] MEDS: Dorzolamide/Timolol 2%-0.5% Ophth Soln 10 ML Bottle EYEBOTH SCH ×2 (08:29→20:59)
[2021-09-07] MEDS: Enoxaparin 40 MG/0.4 ML Syringe SUBCUT SCH (08:30)
[2021-09-07] MEDS: Nystatin Topical Powder 30 GM Bottle TOP SCH ×2 (11:49→20:58)
[2021-09-07] MEDS: Gabapentin 300 MG Cap PO SCH (20:58)
[2021-09-07] MEDS: Rosuvastatin 10 MG Tab PO SCH (20:58)
[2021-09-08] MEDS: Levothyroxine 50 MCG Tab PO SCH (05:34)
[2021-09-08] MEDS: Albuterol/Ipratropium 3.0-0.5 MG/3 ML Neb Soln NEB SCH ×3 (07:33→17:49)
[2021-09-08] MEDS: metFORMIN 500 MG Tab PO SCH ×2 (08:25→17:25)
[2021-09-08] MEDS: glipiZIDE 5 MG Tab PO SCH ×2 (08:25→17:25)
[2021-09-08] MEDS: Vitamin B6-pyridOXINE 100 MG Tab PO SCH (08:25)
[2021-09-08] MEDS: Cyanocobalamin (Vitamin B12) 100 MCG Tab PO SCH (08:26)
[2021-09-08] MEDS: Multivitamin Tab PO SCH (08:26)
[2021-09-08] MEDS: Aspirin 81 MG Tab.EC PO SCH (08:26)
[2021-09-08] MEDS: Furosemide 40 MG Tab PO SCH (08:26)
[2021-09-08] MEDS: Ezetimibe 10 MG Tab PO SCH (08:27)
[2021-09-08] MEDS: Lisinopril 5 MG Tab PO SCH (08:27)
[2021-09-08] MEDS: Atenolol 50 MG Tab PO SCH (08:27)
[2021-09-08] MEDS: Enoxaparin 40 MG/0.4 ML Syringe SUBCUT SCH (08:28)
[2021-09-08] MEDS: Dorzolamide/Timolol 2%-0.5% Ophth Soln 10 ML Bottle EYEBOTH SCH ×2 (08:29→21:17)
[2021-09-08] MEDS: Nystatin Topical Powder 30 GM Bottle TOP SCH ×2 (08:30→21:16)
[2021-09-08] MEDS: Rosuvastatin 10 MG Tab PO SCH (21:16)
[2021-09-08] MEDS: Gabapentin 300 MG Cap PO SCH (21:16)
[2021-09-09] MEDS: Levothyroxine 50 MCG Tab PO SCH (06:21)
[2021-09-09] MEDS: Albuterol/Ipratropium 3.0-0.5 MG/3 ML Neb Soln NEB SCH (07:20)
[2021-09-09] MEDS: Aspirin 81 MG Tab.EC PO SCH (08:22)
[2021-09-09] MEDS: Cyanocobalamin (Vitamin B12) 100 MCG Tab PO SCH (08:22)
[2021-09-09] MEDS: Lisinopril 5 MG Tab PO SCH (08:22)
[2021-09-09] MEDS: metFORMIN 500 MG Tab PO SCH (08:23)
[2021-09-09] MEDS: Atenolol 50 MG Tab PO SCH (08:23)
[2021-09-09] MEDS: glipiZIDE 5 MG Tab PO SCH (08:24)
[2021-09-09] MEDS: Vitamin B6-pyridOXINE 100 MG Tab PO SCH (08:26)
[2021-09-09] MEDS: Furosemide 40 MG Tab PO SCH (08:27)
[2021-09-09] MEDS: Ezetimibe 10 MG Tab PO SCH (08:27)
[2021-09-09] MEDS: Enoxaparin 40 MG/0.4 ML Syringe SUBCUT SCH (08:27)
[2021-09-09] MEDS: Nystatin Topical Powder 30 GM Bottle TOP SCH (08:28)
[2021-09-09] MEDS: Dorzolamide/Timolol 2%-0.5% Ophth Soln 10 ML Bottle EYEBOTH SCH (08:29)
[2021-09-09] MEDS: Multivitamin Tab PO SCH (08:30)
== END 2021-09-09 10:15 | disposition home or self-care (01) | DRG 947 ==
LOC: DL.MS 16:06
PROVIDERS: ADMIT Internal Medicine; ATTEND Internal Medicine
DX: R53.1 Weakness (principal); J96.01 Acute respiratory failure with hypoxia; J96.02 Acute respiratory failure with hypercapnia; J18.9 Pneumonia, unspecified organism; J90 Pleural effusion, not elsewhere classified; H54.7 Unspecified visual loss; I10 Essential (primary) hypertension; E78.5 Hyperlipidemia, unspecified; E03.9 Hypothyroidism, unspecified; M81.0 Age-related osteoporosis without current pathological fracture; E53.8 Deficiency of other specified B group vitamins; E11.42 Type 2 diabetes mellitus with diabetic polyneuropathy; R33.9 Retention of urine, unspecified; H40.9 Unspecified glaucoma; M40.209 Unspecified kyphosis, site unspecified; E66.9 Obesity, unspecified; E83.42 Hypomagnesemia; G47.33 Obstructive sleep apnea (adult) (pediatric); Z20.822 Contact with and (suspected) exposure to COVID-19; Z87.01 Personal history of pneumonia (recurrent); Z79.899 Other long term (current) drug therapy; Z79.82 Long term (current) use of aspirin; Z79.890 Hormone replacement therapy; Z79.84 Long term (current) use of oral hypoglycemic drugs; Z68.36 Body mass index [BMI] 36.0-36.9, adult; Z91.81 History of falling
CPT/HCPCS: 36415; 80048; 82947; 85025; 94060; 94640; 94668; 97110-GO; 97110-GP; 97116-GP; 97161-GP; 97165-GO; 97530-GO; 97535-GO; A9270-GY; J1644; J1650; J7620-GY; U0002

== ENCOUNTER 2022-01-14 12:47 | Inpatient (IN) | payer MEDICARE, MEDICAID ==
[2022-01-14] MEDS ORDERED: Albuterol/Ipratropium 3.0-0.5 MG/3 ML Neb Soln NEB PRN (14:49)
[2022-01-14] MEDS ORDERED: Loratadine 10 MG Tab PO PRN (14:49)
[2022-01-14] MEDS ORDERED: Albuterol 6.7 GM Inhaler INH PRN (14:49)
[2022-01-14] MEDS ORDERED: Ondansetron 4 MG Tab.DIS PO PRN (14:53)
[2022-01-14] MEDS ORDERED: Docusate Sodium 100 MG Cap PO PRN (14:53)
[2022-01-14] MEDS ORDERED: Non-Formulary Medication 1 Each (Alendronate Sodium [Fosamax] 70 MG Tablet) PO SCH (15:00)
[2022-01-14] MEDS: metFORMIN 500 MG Tab PO SCH (17:11)
[2022-01-14] MEDS: Acetaminophen 325 MG Tab PO PRN (17:11)
[2022-01-14] MEDS: glipiZIDE 5 MG Tab PO SCH (17:12)
[2022-01-14] MEDS: Budesonide 0.5 MG/2 ML Neb Susp NEB SCH (17:23)
[2022-01-14] MEDS: Metoprolol Tartrate 25 MG Tab PO SCH (20:15)
[2022-01-14] MEDS: Rosuvastatin 10 MG Tab PO SCH (20:15)
[2022-01-14] MEDS: Apixaban 5 MG Tab PO SCH (20:15)
[2022-01-14] MEDS: Dorzolamide/Timolol 2%-0.5% Ophth Soln 10 ML Bottle EYEBOTH SCH (20:17)
[2022-01-14] MEDS: Nystatin Topical Powder 30 GM Bottle TOP SCH (20:25)
[2022-01-15] MEDS: Levothyroxine 50 MCG Tab PO SCH (06:58)
[2022-01-15] MEDS: Acetaminophen 325 MG Tab PO PRN ×2 (06:58→21:25)
[2022-01-15] MEDS: Metoprolol Tartrate 25 MG Tab PO SCH ×2 (08:24→21:03)
[2022-01-15] MEDS: Vitamin B6-pyridOXINE 100 MG Tab PO SCH (08:25)
[2022-01-15] MEDS: glipiZIDE 5 MG Tab PO SCH ×2 (08:25→17:41)
[2022-01-15] MEDS: Furosemide 40 MG Tab PO SCH (08:26)
[2022-01-15] MEDS: metFORMIN 500 MG Tab PO SCH ×2 (08:26→17:41)
[2022-01-15] MEDS: Apixaban 5 MG Tab PO SCH ×2 (08:26→21:04)
[2022-01-15] MEDS: Cyanocobalamin (Vitamin B12) 100 MCG Tab PO SCH (08:26)
[2022-01-15] MEDS: Lisinopril 5 MG Tab PO SCH (08:26)
[2022-01-15] MEDS: Aspirin 81 MG Tab.EC PO SCH (08:26)
[2022-01-15] MEDS: Clopidogrel 75 MG Tab PO SCH (08:27)
[2022-01-15] MEDS: Gabapentin 300 MG Cap PO SCH (08:27)
[2022-01-15] MEDS: Dorzolamide/Timolol 2%-0.5% Ophth Soln 10 ML Bottle EYEBOTH SCH ×2 (08:27→21:01)
[2022-01-15] MEDS: Ezetimibe 10 MG Tab PO SCH (08:27)
[2022-01-15] MEDS: Nystatin Topical Powder 30 GM Bottle TOP SCH ×2 (08:27→21:04)
[2022-01-15] MEDS: Budesonide 0.5 MG/2 ML Neb Susp NEB SCH ×2 (08:33→18:37)
[2022-01-15] MEDS ORDERED: Non-Formulary Medication 1 Each (Potassium Gluconate [Potassium] 99 MG Tablet) PO SCH (09:00)
[2022-01-15] MEDS ORDERED: Non-Formulary Medication 1 Each (Ubidecarenone [Co Q-10] 100 MG Capsule) PO SCH (09:00)
[2022-01-15] MEDS: Calcium Carbonate 500 MG Tab.Chew PO PRN (12:28)
[2022-01-15] MEDS: Rosuvastatin 10 MG Tab PO SCH (21:02)
[2022-01-16] MEDS: BETHANECHOL CHLORIDE 10 MG PO SCH ×5 (05:52→21:17)
[2022-01-16] MEDS: Levothyroxine 50 MCG Tab PO SCH (05:53)
[2022-01-16] MEDS: LINAGLIPTIN 5 MG PO SCH ×2 (06:44→08:23)
[2022-01-16] MEDS: Budesonide 0.5 MG/2 ML Neb Susp NEB SCH ×2 (07:54→18:10)
[2022-01-16] MEDS: Aspirin 81 MG Tab.EC PO SCH (08:19)
[2022-01-16] MEDS: Furosemide 40 MG Tab PO SCH (08:19)
[2022-01-16] MEDS: glipiZIDE 5 MG Tab PO SCH ×2 (08:19→17:40)
[2022-01-16] MEDS: Ezetimibe 10 MG Tab PO SCH (08:20)
[2022-01-16] MEDS: Gabapentin 300 MG Cap PO SCH ×2 (08:20→21:18)
[2022-01-16] MEDS: Cyanocobalamin (Vitamin B12) 100 MCG Tab PO SCH (08:20)
[2022-01-16] MEDS: Clopidogrel 75 MG Tab PO SCH (08:20)
[2022-01-16] MEDS: metFORMIN 500 MG Tab PO SCH ×2 (08:20→17:41)
[2022-01-16] MEDS: Apixaban 5 MG Tab PO SCH ×2 (08:20→21:17)
[2022-01-16] MEDS: Metoprolol Tartrate 25 MG Tab PO SCH ×2 (08:21→21:18)
[2022-01-16] MEDS: Lisinopril 5 MG Tab PO SCH (08:21)
[2022-01-16] MEDS: Vitamin B6-pyridOXINE 100 MG Tab PO SCH (08:21)
[2022-01-16] MEDS: Nystatin Topical Powder 30 GM Bottle TOP SCH ×2 (08:22→21:19)
[2022-01-16] MEDS: Dorzolamide/Timolol 2%-0.5% Ophth Soln 10 ML Bottle EYEBOTH SCH ×2 (08:22→21:17)
[2022-01-16] MEDS: Rosuvastatin 10 MG Tab PO SCH (21:17)
[2022-01-17] MEDS: Levothyroxine 50 MCG Tab PO SCH (06:08)
[2022-01-17] MEDS: BETHANECHOL CHLORIDE 10 MG PO SCH ×4 (06:12→20:47)
[2022-01-17 07:14] LABS: ANION GAP 11.4 mEq/L (7-13)
[2022-01-17] MEDS: Budesonide 0.5 MG/2 ML Neb Susp NEB SCH ×2 (07:52→18:18)
[2022-01-17] MEDS: Vitamin B6-pyridOXINE 100 MG Tab PO SCH (08:15)
[2022-01-17] MEDS: Cyanocobalamin (Vitamin B12) 100 MCG Tab PO SCH (08:15)
[2022-01-17] MEDS: Aspirin 81 MG Tab.EC PO SCH (08:16)
[2022-01-17] MEDS: Metoprolol Tartrate 25 MG Tab PO SCH ×2 (08:16→20:40)
[2022-01-17] MEDS: glipiZIDE 5 MG Tab PO SCH ×2 (08:16→17:27)
[2022-01-17] MEDS: Ezetimibe 10 MG Tab PO SCH (08:17)
[2022-01-17] MEDS: Lisinopril 5 MG Tab PO SCH (08:17)
[2022-01-17] MEDS: Apixaban 5 MG Tab PO SCH ×2 (08:17→20:39)
[2022-01-17] MEDS: metFORMIN 500 MG Tab PO SCH ×2 (08:17→17:16)
[2022-01-17] MEDS: Furosemide 40 MG Tab PO SCH (08:17)
[2022-01-17] MEDS: Clopidogrel 75 MG Tab PO SCH (08:17)
[2022-01-17] MEDS: Dorzolamide/Timolol 2%-0.5% Ophth Soln 10 ML Bottle EYEBOTH SCH ×2 (08:18→20:46)
[2022-01-17] MEDS: LINAGLIPTIN 5 MG PO SCH (08:19)
[2022-01-17] MEDS: Nystatin Topical Powder 30 GM Bottle TOP SCH (08:19)
[2022-01-17] MEDS: Gabapentin 300 MG Cap PO SCH (20:39)
[2022-01-17] MEDS: Rosuvastatin 10 MG Tab PO SCH (20:40)
[2022-01-18] MEDS: Nystatin Topical Powder 30 GM Bottle TOP SCH ×2 (08:13→21:37)
[2022-01-18] MEDS: Dorzolamide/Timolol 2%-0.5% Ophth Soln 10 ML Bottle EYEBOTH SCH ×2 (08:14→21:34)
[2022-01-18] MEDS: LINAGLIPTIN 5 MG PO SCH (08:15)
[2022-01-18] MEDS: BETHANECHOL CHLORIDE 10 MG PO SCH ×3 (08:15→21:35)
[2022-01-18] MEDS: metFORMIN 500 MG Tab PO SCH ×2 (08:17→17:42)
[2022-01-18] MEDS: Vitamin B6-pyridOXINE 100 MG Tab PO SCH (08:17)
[2022-01-18] MEDS: Lisinopril 5 MG Tab PO SCH (08:18)
[2022-01-18] MEDS: Clopidogrel 75 MG Tab PO SCH (08:18)
[2022-01-18] MEDS: Furosemide 40 MG Tab PO SCH (08:19)
[2022-01-18] MEDS: Ezetimibe 10 MG Tab PO SCH (08:20)
[2022-01-18] MEDS: Metoprolol Tartrate 25 MG Tab PO SCH ×2 (08:20→21:33)
[2022-01-18] MEDS: Aspirin 81 MG Tab.EC PO SCH (08:20)
[2022-01-18] MEDS: Apixaban 5 MG Tab PO SCH ×2 (08:21→21:32)
[2022-01-18] MEDS: Cyanocobalamin (Vitamin B12) 100 MCG Tab PO SCH (08:21)
[2022-01-18] MEDS ORDERED: Budesonide 0.5 MG/2 ML Neb Susp ONE ×2 (09:58→10:49)
[2022-01-18] MEDS: Levothyroxine 50 MCG Tab PO SCH (12:10)
[2022-01-18] MEDS: glipiZIDE 5 MG Tab PO SCH ×2 (14:55→17:42)
[2022-01-18] MEDS: Budesonide 0.5 MG/2 ML Neb Susp NEB SCH ×2 (16:24→17:42)
[2022-01-18] MEDS: Rosuvastatin 10 MG Tab PO SCH (21:32)
[2022-01-18] MEDS: Gabapentin 300 MG Cap PO SCH (21:33)
[2022-01-19] MEDS: Levothyroxine 50 MCG Tab PO SCH (05:57)
[2022-01-19] MEDS: Nystatin Topical Powder 30 GM Bottle TOP SCH ×3 (06:05→22:00)
[2022-01-19] MEDS: Budesonide 0.5 MG/2 ML Neb Susp NEB SCH ×2 (07:30→17:48)
[2022-01-19] MEDS: glipiZIDE 5 MG Tab PO SCH ×2 (09:10→17:11)
[2022-01-19] MEDS: metFORMIN 500 MG Tab PO SCH ×2 (09:11→17:17)
[2022-01-19] MEDS: Aspirin 81 MG Tab.EC PO SCH (09:11)
[2022-01-19] MEDS: Clopidogrel 75 MG Tab PO SCH (09:11)
[2022-01-19] MEDS: Ezetimibe 10 MG Tab PO SCH (09:11)
[2022-01-19] MEDS: Lisinopril 5 MG Tab PO SCH (09:11)
[2022-01-19] MEDS: Apixaban 5 MG Tab PO SCH ×2 (09:12→20:32)
[2022-01-19] MEDS: Furosemide 40 MG Tab PO SCH (09:18)
[2022-01-19] MEDS: Cyanocobalamin (Vitamin B12) 100 MCG Tab PO SCH (09:21)
[2022-01-19] MEDS: Vitamin B6-pyridOXINE 100 MG Tab PO SCH (09:21)
[2022-01-19] MEDS: Metoprolol Tartrate 25 MG Tab PO SCH ×2 (09:23→20:31)
[2022-01-19] MEDS: BETHANECHOL CHLORIDE 10 MG PO SCH ×3 (09:26→20:30)
[2022-01-19] MEDS: LINAGLIPTIN 5 MG PO SCH (09:27)
[2022-01-19] MEDS: Dorzolamide/Timolol 2%-0.5% Ophth Soln 10 ML Bottle EYEBOTH SCH ×2 (09:27→20:30)
[2022-01-19] MEDS: Lidocaine 5% 700 MG Patch TOP SCH (15:42)
[2022-01-19] MEDS: Calcium Carbonate 500 MG Tab.Chew PO PRN (20:28)
[2022-01-19] MEDS: Gabapentin 300 MG Cap PO SCH (20:31)
[2022-01-19] MEDS: Rosuvastatin 10 MG Tab PO SCH (20:32)
[2022-01-20] MEDS: Levothyroxine 50 MCG Tab PO SCH (05:42)
[2022-01-20] MEDS: Budesonide 0.5 MG/2 ML Neb Susp NEB SCH (08:37)
[2022-01-20] MEDS: Lidocaine 5% 700 MG Patch TOP SCH (09:10)
[2022-01-20] MEDS: Cyanocobalamin (Vitamin B12) 100 MCG Tab PO SCH (09:11)
[2022-01-20] MEDS: Metoprolol Tartrate 25 MG Tab PO SCH (09:12)
[2022-01-20] MEDS: metFORMIN 500 MG Tab PO SCH (09:13)
[2022-01-20] MEDS: BETHANECHOL CHLORIDE 10 MG PO SCH (09:15)
[2022-01-20] MEDS: Clopidogrel 75 MG Tab PO SCH (09:15)
[2022-01-20] MEDS: Furosemide 40 MG Tab PO SCH (09:15)
[2022-01-20] MEDS: Nystatin Topical Powder 30 GM Bottle TOP SCH (09:15)
[2022-01-20] MEDS: Vitamin B6-pyridOXINE 100 MG Tab PO SCH (09:16)
[2022-01-20] MEDS: Ezetimibe 10 MG Tab PO SCH (09:16)
[2022-01-20] MEDS: Aspirin 81 MG Tab.EC PO SCH (09:17)
[2022-01-20] MEDS: glipiZIDE 5 MG Tab PO SCH (09:19)
[2022-01-20] MEDS: Apixaban 5 MG Tab PO SCH (09:20)
[2022-01-20] MEDS: Dorzolamide/Timolol 2%-0.5% Ophth Soln 10 ML Bottle EYEBOTH SCH (09:21)
[2022-01-20] MEDS: LINAGLIPTIN 5 MG PO SCH (09:22)
[2022-01-20] MEDS: Lisinopril 5 MG Tab PO SCH (09:23)
== END 2022-01-20 10:20 | disposition other institution (70) | DRG 947 ==
LOC: UNDOADMIN 12:47 → DL.MS 12:47
PROVIDERS: ADMIT Internal Medicine; ATTEND Internal Medicine
DX: R53.81 Other malaise (principal); J96.02 Acute respiratory failure with hypercapnia; N17.9 Acute kidney failure, unspecified; Z95.4 Presence of other heart-valve replacement; Z98.890 Other specified postprocedural states; I48.91 Unspecified atrial fibrillation; Z20.822 Contact with and (suspected) exposure to COVID-19; E78.5 Hyperlipidemia, unspecified; G47.33 Obstructive sleep apnea (adult) (pediatric); L89.159 Pressure ulcer of sacral region, unspecified stage; E66.9 Obesity, unspecified; E78.00 Pure hypercholesterolemia, unspecified; I50.9 Heart failure, unspecified; J45.909 Unspecified asthma, uncomplicated; M19.90 Unspecified osteoarthritis, unspecified site; E03.9 Hypothyroidism, unspecified; M81.0 Age-related osteoporosis without current pathological fracture; F41.9 Anxiety disorder, unspecified; I11.0 Hypertensive heart disease with heart failure; Z88.1 Allergy status to other antibiotic agents; Z79.82 Long term (current) use of aspirin; Z79.890 Hormone replacement therapy; Z79.84 Long term (current) use of oral hypoglycemic drugs; Z79.899 Other long term (current) drug therapy
CPT/HCPCS: 36415; 80048; 82947; 85025; 85027; 94640; 94660; 97110-GO; 97110-GP; 97116-GP; 97161-GP; 97165-GO; 97530-GO; A9270-GY; J7620-GY; U0002